=== PATIENT | female | born 1985 | race African-American/Black ===

== ENCOUNTER 2019-05-08 06:43 | Emergency (ER) | payer SELFPAY ==
[2019-05-08] MEDS ORDERED: Ketorolac Tromethamine 30 MG/ML VIAL ONE (07:56)
== END 2019-05-08 08:08 | disposition home or self-care (01) ==
LOC: ERS 06:43
DX: K02.9 Dental caries, unspecified (principal)
CPT/HCPCS: 96372; 99282; J1885